=== PATIENT | female | born 1950 | race Hispanic/Latino ===

== ENCOUNTER → 2023-08-04 | Outpatient (CLI) | payer OTHER | END | disposition home or self-care (01) | LOC: RAH 09:26 | PROVIDERS: ATTEND Internal Medicine | DX: N28.1 Cyst of kidney, acquired (principal); R10.13 Epigastric pain; K76.89 Other specified diseases of liver; K86.2 Cyst of pancreas; Z90.49 Acquired absence of other specified parts of digestive tract | CPT/HCPCS: 76700 ==

== ENCOUNTER → 2023-09-09 | Outpatient (CLI) | payer OTHER ==
[~2023-09-09] MED LIST: GADOTERATE MEGLUMINE 10 MMOL/20 ML VIAL IV ONE
== END | disposition home or self-care (01) ==
LOC: RAH 12:39
PROVIDERS: ATTEND Internal Medicine
DX: K86.2 Cyst of pancreas (principal); K76.89 Other specified diseases of liver; Z90.49 Acquired absence of other specified parts of digestive tract
CPT/HCPCS: 74183; A9575; S8037

== ENCOUNTER 2023-10-28 08:34 | Day surgery (SDC) | payer OTHER ==
[~2023-10-28] VITALS: Ht 160 cm; Wt 74.4 kg
[2023-10-28] VITALS (11 sets, daily range): BP systolic 144–158; BP diastolic 60–79; PULSE 58–63; RESP 14–20
[~2023-10-28 08:34] MED LIST changes: +0.9%NACL 1000ML 1,000 ML IV ONE; +ATOR40TA69 PO; -GADOTERATE MEGLUMINE 10 MMOL/20 ML VIAL IV ONE; +LISI10TA24 PO; +MONT-39 PO; +VERA80TA10 PO
[2023-10-28] MEDS ORDERED: PROPOFOL 10 MG/ML 20ML VIAL IV ONE (11:59)
[2023-10-28] MEDS ORDERED: LIDOCAINE HCL 1% 20 ML VIAL ONE (11:59)
== END 2023-10-28 13:35 | disposition home or self-care (01) ==
LOC: DAH 08:34 → ENDO 08:34
PROVIDERS: ATTEND Internal Medicine Gastroenterology
DX: R93.3 Abnormal findings on diagnostic imaging of other parts of digestive tract (principal); K29.50 Unspecified chronic gastritis without bleeding; K86.2 Cyst of pancreas; K92.1 Melena; I10 Essential (primary) hypertension; E78.5 Hyperlipidemia, unspecified; J45.909 Unspecified asthma, uncomplicated; Z79.899 Other long term (current) drug therapy; Z79.51 Long term (current) use of inhaled steroids; Z82.49 Family history of ischemic heart disease and other diseases of the circulatory system; Z83.3 Family history of diabetes mellitus; Z83.79 Family history of other diseases of the digestive system; Z90.49 Acquired absence of other specified parts of digestive tract; Z98.890 Other specified postprocedural states
CPT/HCPCS: 43237; 43239; J7030 ×2; J2704; A4620; A4215 ×2; A4223; A4657; A7002; A4222; A4606; A4221; J3490

== ENCOUNTER → 2024-06-13 | Outpatient (CLI) | payer OTHER ==
[~2024-06-13] MED LIST changes: -0.9%NACL 1000ML 1,000 ML IV ONE; +GADOTERATE MEGLUMINE 10 MMOL/20 ML VIAL IV ONE
== END | disposition home or self-care (01) ==
LOC: RAH 12:56
PROVIDERS: ATTEND Internal Medicine Gastroenterology
DX: K86.2 Cyst of pancreas (principal); K76.89 Other specified diseases of liver; Z90.49 Acquired absence of other specified parts of digestive tract
CPT/HCPCS: 74183; A9575

== ENCOUNTER → 2025-07-31 | Outpatient (CLI) | payer OTHER ==
[~2025-07-31] MED LIST changes: -GADOTERATE MEGLUMINE 10 MMOL/20 ML VIAL IV ONE
[2025-07-31 11:36] LABS: ASPARTATE AMINOTRANSFERASE 15.0 U/L (10-37); CREATININE 0.8 mg/dL (0.5-1.0); GLOMERULAR FILTR. RATE CALC 77.0 mL/min (>90); GLUCOSE,RANDOM 108.0 mg/dL (70-105); SODIUM SERUM 142.0 mmol/L (136-145); TOTAL PROTEIN, SERUM 6.6 g/dL (6.0-8.3); UREA NITROGEN, BLOOD 13.0 mg/dL (7-18)
== END | disposition home or self-care (01) ==
LOC: LAB 11:01
PROVIDERS: ATTEND Internal Medicine Gastroenterology
DX: K86.2 Cyst of pancreas (principal)
CPT/HCPCS: 36415; 80053

== ENCOUNTER → 2025-08-02 | Outpatient (CLI) | payer OTHER ==
[~2025-08-02] MED LIST changes: +GADOTERATE MEGLUMINE 10 MMOL/20 ML VIAL IV ONE
--- NOTE | 2025-08-02 23:32 | HMCIMG ---
EXAM: MRI ABDOMEN WITH AND WITHOUT INTRAVENOUS CONTRAST Technique: Multiplanar, multisequence magnetic resonance imaging of the abdomen before and after intravenous gadolinium administration, including T1- and T2-weighted, fat-suppressed, in- and opposed-phase, diffusion-weighted, and dynamic post-contrast sequences. Contrast: Gadoteric acid (Cl[place]) 0.5 mmol/mL, 17 mL, intravenous. Clinical Information: History of pancreatic cyst. Findings: Liver: Measures 15.2 cm with diffuse hepatic steatosis; a few simple hepatic cysts including a bilobed cyst measuring up to 2.5 cm in the left lobe; no suspicious enhancing hepatic lesion. Gallbladder and biliary tree: Status post cholecystectomy; common bile duct measures 8 mm, within expected range post-cholecystectomy; no intrahepatic biliary dilatation. Pancreas: Two simple cysts in the body measuring 2.2 cm and 1.6 cm without mural nodules or suspicious enhancement; an exophytic cyst arising from the pancreatic head measuring 1.8 cm with an internal mural nodule that does not enhance and shows no diffusion restriction; no main pancreatic duct dilatation or parenchymal mass. Spleen: Normal size and signal without focal lesion. Adrenal glands: Normal bilaterally. Kidneys and ureters: Normal renal size and enhancement; multiple subcentimeter simple renal cysts bilaterally and a 5.6 cm simple cyst in the lower pole of the left kidney; no hydronephrosis or solid renal mass. Bowel: Visualized stomach and bowel loops are unremarkable without focal mural thickening. Lymph nodes: No pathologically enlarged abdominal lymph nodes. Vasculature: Major abdominal vessels of normal caliber and course on non-angiographic sequences. Abdominal wall/soft tissues: Unremarkable. Osseous structures: Degenerative changes in the visualized spine; tiny vertebral body hemangiomas in the lower thoracic spine. IMPRESSION: 1. Pancreatic cystic lesions including a 1.8 cm exophytic cyst from the pancreatic head with a non-enhancing mural nodule without diffusion restriction, warranting gastroenterology referral and endoscopic ultrasound with possible fine-needle aspiration for further characterization and cyst fluid analysis. 2. Two simple pancreatic body cysts measuring 2.2 cm and 1.6 cm without mural nodules or suspicious enhancement. 3. Hepatic steatosis with small simple hepatic cysts, largest measuring 2.5 cm in the left lobe, without suspicious enhancement. 4. Multiple simple renal cysts including a 5.6 cm left lower-pole Bosniak I cyst. No specific imaging follow-up required if asymptomatic. 5. Status post cholecystectomy with common bile duct measuring 8 mm, within expected post-cholecystectomy limits. No intrahepatic biliary dilatation. 6. Degenerative changes in the visualized spine with tiny vertebral body hemangiomas in the lower thoracic spine. /[place]
== END | disposition home or self-care (01) ==
LOC: RAH 08:58
PROVIDERS: ATTEND Internal Medicine Gastroenterology
DX: K76.0 Fatty (change of) liver, not elsewhere classified (principal); K86.2 Cyst of pancreas; N28.1 Cyst of kidney, acquired; K76.89 Other specified diseases of liver; M47.814 Spondylosis without myelopathy or radiculopathy, thoracic region; D18.09 Hemangioma of other sites; Z90.49 Acquired absence of other specified parts of digestive tract
CPT/HCPCS: 74183; A9575